=== PATIENT | female | born 1995 | race Caucasian/White ===

== ENCOUNTER 2021-01-19 07:55 | Day surgery (SDC) | payer OTHER ==
[2021-01-14 12:14] VITALS: BMI 21.9
[~2021-01-19 07:55] MED LIST: ACETAMINOPHEN TAB 500 MG TAB PO PRN; HEPARIN SODIUM,PORCINE/PF 5,000 UNIT/0.5 ML SYRINGE SQ PRN; LACTATED RINGERS 1,000 ML IV SCH; MIDAZOLAM 2 MG/2 ML VIAL IV PRN; ONDANSETRON 4 MG/2 ML VIAL IVP ONE; SCOPOLAMINE 1.5MG/72HR PATCH TRANSDERM ONE
[2021-01-19] MEDS ORDERED: LACTATED RINGERS 1,000 ML IV ONE ×3 (08:28→11:29)
--- NOTE | 2021-01-19 10:00 | P.GSHP ---
History of Present Illness H&P Date: 01/19/21 Chief Complaint: Right upper quadrant pain Is a 25-year-old female who presents today for laparoscopic cholecystectomy. Patient's complaints of right upper quadrant pain consistent with chronic cholecystitis. Patient has complaints of right quadrant pain after eating greas y and fried foods. Past Medical History Past Medical History: Asthma, GERD/Reflux, Renal Disease Additional Past Medical History / Comment(s): Current ear infection, starting antibiotic today. Low iron, low blood pressure, hypogylcemia, gastritis, exercise/sports induced asthma, Medullary Sponge Kidney Disease, hx kidney stones. History of Any Multi-Drug Resistant Organisms: None Reported Additional Past Surgical History / Comment(s): Left fallopian tube and ovary removed, EGD, Colonoscopy. Past Anesthesia/Blood Transfusion Reactions: No Reported Reaction Additional Past Anesthesia/Blood Transfusion Reaction / Comment(s): PONV - Mom and Dad. Past Psychological History: Anxiety, Depression Smoking Status: Vaper Past Alcohol Use History: Occasional Additional Past Alcohol Use History / Comment(s): Vaping X5 yrs. Past Drug Use History: Marijuana Additional Drug Use History / Comment(s): Daily Marijuana use. Aware no use 24 hrs prior to procedure. - Past Family History Mother Family Medical History: No Reported History Medications and Allergies Home Medications Medication Instructions Recorded Confirmed Type Acetaminophen Tab [Tylenol Tab] 500 - 1,000 mg PO Q4H PRN 01/14/21 01/14/21 History Albuterol Inhaler [Ventolin Hfa 1 puff INHALATION DIRECTED PRN 01/14/21 01/14/21 History Inhaler] Medroxyprogesterone Acetate 150 mg IM Q90D 01/14/21 01/14/21 History [Depo-Provera] Ondansetron [Zofran] 4 mg PO Q8HR PRN 01/14/21 01/14/21 History Allergies Allergy/AdvReac Type Severity Reaction Status Date / Time acetaminophen [From Fioricet] Allergy Nausea & Verified 01/14/21 12:16 Vomiting azithromycin Allergy Nausea & Verified 01/14/21 12:16 [From Zithromax Z-Asael] Vomiting butalbital [From Fioricet] Allergy Nausea & Verified 01/14/21 12:16 Vomiting caffeine [From Fioricet] Allergy Nausea & Verified 01/14/21 12:16 Vomiting prednisone Allergy Nausea & Verified 01/14/21 12:16 Vomiting Surgical - Exam Vital Signs Temp Pulse Resp BP Pulse Ox 97.8 F 74 18 121/70 100 01/19/21 08:20 01/19/21 08:20 01/19/21 08:20 01/19/21 08:20 01/19/21 08:20 - General well developed, well nourished, no distress - Eyes PERRL - ENT normal pinna - Neck no masses - Respiratory normal expansion - Cardiovascular Rhythm: regular - Abdomen Abdomen: soft, non tender Assessment and Plan Assessment: Right upper quadrant pain. Chronic cholecystis We'll perform laparoscopic cholecystectomy
[2021-01-19] MEDS ORDERED: LIDOCAINE 1% INJ 10MG/ML (20 ML MDV) ONE (10:18)
[2021-01-19] MEDS ORDERED: NEOSTIGMINE 1 MG/ML 10 ML VIAL ONE (10:18)
[2021-01-19] MEDS ORDERED: SUCCINYLCHOLINE CHLORIDE 100 MG/5 ML SYR IV ONE (10:18)
[2021-01-19] MEDS ORDERED: MIDAZOLAM 2 MG/2 ML VIAL ONE (10:18)
[2021-01-19] MEDS ORDERED: fentaNYL (PF) 50 MCG/ML 2 ML AMP ONE (10:18)
[2021-01-19] MEDS ORDERED: ROCURONIUM 10 MG/ML (5 ML VIAL) IV ONE (10:18)
[2021-01-19] MEDS ORDERED: PROPOFOL 10 MG/ML 20 ML VIAL IV ONE (10:18)
[2021-01-19] MEDS ORDERED: GLYCOPYRROLATE 0.2 MG/ML 2 ML VIAL ONE (10:18)
[2021-01-19] MEDS ORDERED: LIDOCAINE 1%-EPI 1:100,000 20 ML VIAL SQ ONE (10:44)
--- NOTE | 2021-01-19 11:03 | P.OP ---
Date of Procedure: 01/19/21 Preoperative Diagnosis: Chronic cholecystitis Postoperative Diagnosis: Chronic cholecystitis Procedure(s) Performed: Laparoscopic cholecystectomy Anesthesia: GUSTABO Surgeon: Abelino Joseph Estimated Blood Loss (ml): 5 Pathology: other (Gallbladder) Condition: stable Disposition: PACU Description of Procedure: The patient was placed on the operating table. The patient received a general endotracheal tube anesthesia. The patients abdomen was prepped and draped in the usual sterile fashion. Through an infraumbilical stab incision, the fascia of the anterior abdominal wall was grasped with a pair of Kochers and then the Veress needle was placed in the peritoneal cavity. Position of the Veress needle was confirmed with positive drop test. The abdomen was then insufflated. After adequate insufflation, the 10 mm trocar was placed in the peritoneal cavity. Following this the laparoscope was placed in the peritoneal cavity. The patient was placed in the head-up, right side up position and then a 5 mm trocar was placed in the right lateral and right subcostal position under direct visualization. A 8 mm trocar was placed in the epigastric position. The gallbladder was grasped in the fundus and infundibulum. Traction on the gallbladder was placed in the lateral and the cephalad positions. The triangle of Calot was visualized.. The cystic duct was bluntly dissected until the union of the cystic duct and common bile duct was seen. A critical view of safety was achieved. The cystic duct was then divided and sealed with the Harmonic scissors. A PDS Endoloop was then placed throughout the cystic duct stump. The cystic artery divided and sealed with the Harmonic scissors. The gallbladder was then removed from the liver bed using Harmonic scissors. The gallbladder was then extracted through the epigastric port site. Operative field was checked for any bleeding spots and Harmonic scissors was used to coagulate the liver bed. The abdomen was irrigated. The trocars were removed. The skin was closed using interrupted 3-0 Vicryl suture. Dermabond dressing were applied. The patient tolerated the procedure well.
[2021-01-19] MEDS: HYDROmorphone 0.5 MG/0.5 ML SYRINGE IVP PRN ×3 (11:05→11:25)
[2021-01-19 11:10] VITALS: TEMP 98
[2021-01-19] MEDS ORDERED: KETOROLAC 15 MG/ML 1 ML VIAL ONE (11:10)
[2021-01-19] MEDS ORDERED: KETOROLAC 15 MG/ML 1 ML VIAL IVP ONE (11:16)
[2021-01-19] MEDS ORDERED: diphenhydrAMINE 50 MG/ML 1 ML VIAL ONE (11:16)
[2021-01-19 11:34] VITALS: RESP 16
[2021-01-19 12:29] VITALS: BP 114/73; PULSE 54
== END 2021-01-19 12:24 | disposition home or self-care (01) ==
LOC: OR 07:55
PROVIDERS: ATTEND Surgery
DX: K81.1 Chronic cholecystitis (principal); J45.909 Unspecified asthma, uncomplicated; K21.9 Gastro-esophageal reflux disease without esophagitis; Q61.5 Medullary cystic kidney; F41.8 Other specified anxiety disorders; F12.90 Cannabis use, unspecified, uncomplicated; Z79.51 Long term (current) use of inhaled steroids; Z79.3 Long term (current) use of hormonal contraceptives; Z87.19 Personal history of other diseases of the digestive system; Z87.442 Personal history of urinary calculi; Z90.721 Acquired absence of ovaries, unilateral; Z90.79 Acquired absence of other genital organ(s)
CPT/HCPCS: 47562; 81025; 88304; J2250; J1200; J2710; J0690; J2405; J2001; J3010; J1885; J0330; J2704; J1170; J1644